=== PATIENT | female | born 1930 | race Caucasian/White ===

== ENCOUNTER 2017-07-07 18:43 | Observation (INO) | payer MEDICARE ==
[2017-07-07] MEDS ORDERED: HYDROcodone/Acetaminophen 5/325 mg Tablet ONE (19:06)
--- NOTE | 2017-07-07 19:57 | CT ---
CT OF THE BRAIN WITHOUT CONTRAST 07/07/17 INDICATION: Fall. COMPARISON: Prior exam dated 04/05/16. FINDINGS: Generalized cerebral and cerebellar atrophy is stable. Moderate chronic small vessel white matter isc hemic change is stable. No acute infarct, hemorrhage, or hydrocephalus is present. Skull and extracra nial soft tissues appear within normal limits. IMPRESSION: No acute intracranial abnormalities. POS: [facility]
--- NOTE | 2017-07-07 19:59 | CT ---
CT OF THE CERVICAL SPINE WITHOUT CONTRAST 07/07/17 INDICATION: Fall with neck pain. FINDINGS: The craniocervical junction appears within normal limits. There is diffuse osteopenia. There is mild multilevel spondylosis of the cervical spine. No definite acute fracture or subluxation is evident. T he lung apices are clear. IMPRESSION: No acute osseous abnormalities. POS: [facility]
[2017-07-07 20:00] LABS: #Eosinphils 0.1 thou/uL (0.0-0.7); #Lymphocytes 0.8 thou/uL (1.20-3.40); #Monocytes 0.4 thou/uL (0.11-0.59); #Neutrophils 13.3 thou/uL (1.40-6.50); %Basophils 0.1 % (0.0-1.0); %Eosinophils 0.5 % (0.0-10.0); %Lymphocytes 5.2 % (21.0-51.0); %Neutrophils 91.2 % (42.0-75.0); Hemoglobin 10.2 g/dL (12.0-16.0); Mean Corpuscular HGB CONC 31.4 g/dL (32.0-36.0); Mean Corpuscular Hemoglobin 31.7 pg (27.0-31.0); Mean Platelet Volume 7.3 fL (7.4-10.4); Platelet Count 368 thou/uL (130-400); RBC Distribution Width 12.6 % (11.5-14.5); Red Blood Cell (RBC) Count 3.21 mill/uL (4.20-5.40); White Blood Cell (WBC) Count 14.6 thou/uL (4.8-10.8)
--- NOTE | 2017-07-07 20:08 | RAD ---
TWO VIEWS OF THE RIGHT ELBOW: 07/07/17 INDICATION: Fall with elbow pain. FINDINGS: No definite acute fracture or subluxation is evident. The lateral projection is suboptimally position ed. There is diffuse osteopenia. There are vascular calcifications within the anterior soft tissues o f the right elbow. No definite joint capsular distention is evident. IMPRESSION: No definite acute osseous abnormality. Limitations to the exam as above. POS: [facility]
--- NOTE | 2017-07-07 20:10 | RAD ---
FOUR VIEWS OF THE RIGHT KNEE: 07/07/17 INDICATION: Fall with right knee pain. FINDINGS: There is severe osteopenia involving the right knee. There is mild degenerative arthrosis of the righ t knee. There are prominent vascular calcifications involving the soft tissues. No definite acute fr acture or subluxation is evident. IMPRESSION: 1. Diffuse osteopenia. 2. Mild osteoarthrosis of the right knee. 3. No definite acute osseous abnormality demonstrated. POS: [facility]
--- NOTE | 2017-07-07 20:12 | RAD ---
TWO VIEWS OF THE RIGHT HIP 07/07/17 INDICATION: Fall with right hip pain. COMPARISON: Prior CT of the abdomen and pelvis dated 03/27/16. FINDINGS: The advanced right hip osteoarthrosis is unchanged. Prominent vascular calcifications are seen effect ing soft tissues of the right hip joint. There is diffuse osteopenia. IMPRESSION: No definite acute osseous abnormality. POS: [facility]
--- NOTE | 2017-07-07 20:13 | RAD ---
TWO VIEWS OF THE RIGHT SHOULDER: 07/07/17 INDICATION: Fall with right shoulder pain. FINDINGS: There is a comminuted, moderately displaced right proximal humerus fracture. The distal fracture frag ment is displaced medially and anteriorly one full shaft width. Extensive comminution seen within the region of the greater tuberosity. Visualized right lung is clear. IMPRESSION: Comminuted moderately displaced right proximal humerus fracture. POS: [facility]
--- NOTE | 2017-07-07 20:14 | RAD ---
AP VIEW OF THE CHEST 07/07/17 INDICATION: Fall with right shoulder pain. FINDINGS: There is stable cardiomegaly. Post CABG changes stable. There is stable elevation of the right hemidi aphragm. No focal consolidation, pleural effusion is evident. There is comminuted, moderately displac ed right proximal humerus fracture. IMPRESSION: 1. No acute cardiopulmonary abnormality. 2. Comminuted right proximal humerus fracture. POS: [facility]
[2017-07-07 20:21] LABS: ALT (SGPT) 16 U/L (8-55); AST (SGOT) 17 U/L (5-34); Albumin 3.9 g/dL (3.4-4.8); Alkaline Phosphatase 123 U/L (40-150); Anion Gap 17 mmol/L (10-20); BUN (Urea Nitrogen) 59 mg/dL (9.8-20.1); Bilirubin, Total 0.3 mg/dL (0.2-1.2); CK (CPK) 121 U/L (29-168); Calc. Creatinine Clearance 0 mL/min (70-130); Calcium 9.4 mg/dL (7.8-10.44); Carbon Dioxide 21 mmol/L (23-31); Chloride 103 mmol/L (98-107); Estimated GFR-MDRD 20; Globulin 3.3 g/dL (2.4-3.5); Glucose 269 mg/dL (83-110); Potassium 5.1 mmol/L (3.5-5.1); Protein, Total 7.2 g/dL (6.0-8.3); Sodium 136 mmol/L (136-145)
[2017-07-07 20:25] LABS: Troponin I 0.041 ng/mL (< 0.028)
[2017-07-07 20:35] LABS: Bilirubin Negative (Negative); Blood, Urine Negative (Negative); Clarity CLEAR (Clear); Glucose, Urine (Dipstick) Negative (Negative); Leukocyte Negative (Negative); Nitrite Negative (Negative); Protein, Urine (Dipstick) Negative (Neg-Trace); Specific Gravity, Urine 1.015 (1.002-1.036); Urobilinogen 0.2 mg/dL (0.2-1.0); pH, Urine 5.5 (5.0-9.0)
[2017-07-07] MEDS ORDERED: traMADol HCl 50 MG TAB PO PRN (22:34)
[2017-07-07] MEDS ORDERED: Ondansetron HCl/PF 4 MG/2 ML Vial IVP PRN (22:35)
[2017-07-07] MEDS ORDERED: hydrALAZINE 20 MG/ML VIAL SLOW IVP PRN (22:35)
[2017-07-07] MEDS ORDERED: Ondansetron ODT 4 MG TAB PO PRN (22:35)
[2017-07-07] MEDS ORDERED: HumaLOG 300 UNITS/3 ML VIAL SC PRN (22:35)
[2017-07-07] MEDS ORDERED: Dextrose 50% Abboject 50 ML SYRINGE SLOW IVP PRN (22:35)
[2017-07-07] MEDS ORDERED: Dextrose 5% in Water 1,000 ML IV PRN (22:35)
[2017-07-07] MEDS ORDERED: Sodium Chloride 0.9% 1,000 ML IV SCH (22:45)
[2017-07-07] MEDS ORDERED: Ibuprofen 200 MG TAB PO SCH (23:00)
[2017-07-07] MEDS ORDERED: Ibuprofen 600 MG TAB PO SCH (23:00)
[2017-07-08] MEDS ORDERED: traMADol HCl 50 MG TAB ONE (00:38)
--- NOTE | 2017-07-08 00:59 | HP ---
DATE OF ADMISSION: 07/07/2017 ATTENDING PHYSICIAN: Dr. Saucedo. TRAUMA ACTIVATION: Not applicable. HISTORY OF PRESENT ILLNESS: This is an 87-year-old female who presented from her assisted living fac ility status post fall. The patient has a history of dementia. The majority of the history was obta ined from family at bedside. Per family, the patient was using her walker became unsteady and fell b ackwards. She had a chief complaint of right arm pain. Unclear, if there was any loss of consciousn ess or head trauma. She was evaluated and found to have an isolated humerus fracture. Orthopedic [facility] r[facility] was notified as well as [facility] rehabilitation. Trauma Services was asked to admit for ob servation and pain control. Upon my evaluation, the patient has a chief complaint of right arm pain. ALLERGIES: SULFA MEDICATIONS, and PLASTIC TAPE. HOME MEDICATIONS: Include Protonix 40 mg p.o. b.i.d., Colace 100 mg p.o. daily, Klor-Con 20 mEq p.o. daily, sertraline 100 mg p.o. daily, hydralazine 50 mg t.i.d., amlodipine 5 mg b.i.d., doxycycline 1 00 mg b.i.d., Lasix 40 mg daily, except for 80 mg Monday and , glipizide 5 mg p.o. daily, li sinopril 10 mg p.o. daily, metoprolol 25 mg b.i.d., Tylenol 500 mg b.i.d. PAST MEDICAL HISTORY: Significant for dementia, hypertension, diabetes, hyperlipidemia, CHF, chronic anemia, and depression. PAST SURGICAL HISTORY: CABG, left hip surgery, cholecystectomy, hysterectomy, and finger I and D. SOCIAL HISTORY: The patient is a resident at an assisted living facility, ambulates using her walker . Family denies alcohol, tobacco or illicit drug use. Per family she has an out of hospital DNR. REVIEW OF SYSTEMS: The patient was recently diagnosed with bronchitis, which was treated with nebuli zers p.r.n. and antibiotics last week. Otherwise, 10-point review of systems was negative except as indicated in the HPI. PHYSICAL EXAMINATION: VITAL SIGNS: On evaluation, blood pressure 165/77, pulse 96, respiration 20, O2 sat 99% on room air, temperature 97.7. GENERAL: Well-developed elderly appearing female in no acute distress. HEAD: Normocephalic, atraumatic. EYES: Pupils are PERRL. Extraocular movements are intact. NECK: Supple. Trachea is midline. CHEST: Surgical scar noted. Normal work of breathing, symmetric rise. LUNGS: Clear to auscultation bilaterally. Symmetric rise. Coarse rhonchi that is cleared with coug gifty. CARDIOVASCULAR: Regular rate and rhythm, no obvious murmurs, rubs or gallops. GASTROINTESTINAL: Abdomen is soft, nontender, nondistended. Bowel sounds are positive. BACK: Reported as being within normal limits. MUSCULOSKELETAL: Right upper extremity in sling. She is neurovascularly intact distal to the side o f her injury with good strength. Left upper extremity within normal limits. Bilateral lower extremi ties within normal limits. NEUROLOGIC: GCS is 15. No focal deficit is noted. LABORATORY FINDINGS: WBC 14.6, hemoglobin 10.2, hematocrit 32.4, platelet count 368. Sodium 136, po tassium 5.1, chloride 103, carbon dioxide 21, BUN 59, creatinine 2.30, glucose 269. AST and ALT with in normal limits. Troponin 0.041. Urinalysis was unremarkable. RADIOGRAPHIC RADIOLOGIC FINDINGS: CT of the brain was negative for acute intracranial abnormality. CT of the C-spine was negative for acute fracture or dislocation. Chest x-ray showed stable elevatio n of the right hemidiaphragm without any acute abnormality. There was evidence of right proximal hum erus fracture per radiology read. Hip x-ray was negative for acute fracture or dislocation. Knee x- ray was negative for acute bony abnormality. X-ray of the right shoulder demonstrated right proximal humerus fracture. X-ray of the elbow was negative for any bony abnormality. ASSESSMENT: 1. Status post mechanical fall. 2. Right proximal humerus fracture. 3. Acute traumatic pain. 4. History of dementia. 5. Acute on chronic kidney disease. 6. Diabetes with hyperglycemia. 7. Hypertension. 8. History of congestive heart failure. 9. History of chronic anemia, stable. 10. Recent bronchitis treated status post antibiotics. 11. History of depression. 12. Elevated troponin, stable when compared to previous. PLAN: Admit to trauma services for pain control and observation. Per discussion with ER physician, Dr. Good from Orthopedic Surgery has been notified and plans for nonoperative treatment. PT and O T. Rehab consult. Oral pain management. Consistent carbohydrate diet with sliding scale insulin. Once Home medications have been reconciled. We will resume. A.m. labs. DVT and gastritis prophylax is as appropriate. Plans for admission were discussed with the patient and family who vocalized unde rstanding. The patient is a DNR. All questions were answered at the time of this dictation. Trauma attending has been notified of admission.
[2017-07-08] MEDS: Acetaminophen 500 MG TAB PO SCH ×3 (01:46→14:27)
[2017-07-08] MEDS: traMADol HCl 50 MG TAB PO SCH ×3 (01:47→14:27)
[2017-07-08 02:21] VITALS: BMI 28.4
[2017-07-08 05:32] LABS: #Lymphocytes 0.7 thou/uL (1.20-3.40); #Monocytes 0.4 thou/uL (0.11-0.59); #Neutrophils 9.7 thou/uL (1.40-6.50); %Basophils 0.2 % (0.0-1.0); %Eosinophils 0.4 % (0.0-10.0); %Lymphocytes 6.8 % (21.0-51.0); %Monocytes 3.9 % (0.0-10.0); %Neutrophils 88.7 % (42.0-75.0); Hemoglobin 8.7 g/dL (12.0-16.0); Mean Corpuscular HGB CONC 32.7 g/dL (32.0-36.0); Mean Corpuscular Hemoglobin 32.8 pg (27.0-31.0); Mean Platelet Volume 7.3 fL (7.4-10.4); Platelet Count 324 thou/uL (130-400); RBC Distribution Width 12.5 % (11.5-14.5); Red Blood Cell (RBC) Count 2.64 mill/uL (4.20-5.40); White Blood Cell (WBC) Count 10.9 thou/uL (4.8-10.8)
[2017-07-08 05:58] LABS: Anion Gap 10 mmol/L (10-20); BUN (Urea Nitrogen) 58 mg/dL (9.8-20.1); Calc. Creatinine Clearance 24 mL/min (70-130); Calcium 8.9 mg/dL (7.8-10.44); Carbon Dioxide 27 mmol/L (23-31); Chloride 105 mmol/L (98-107); Estimated GFR-MDRD 23; Glucose 207 mg/dL (83-110); Phosphorus 4.2 mg/dL (2.3-4.7); Potassium 4.5 mmol/L (3.5-5.1); Sodium 137 mmol/L (136-145)
[2017-07-08] MEDS ORDERED: Ibuprofen 200 MG TAB PO SCH (06:00)
[2017-07-08] MEDS ORDERED: Ibuprofen 600 MG TAB PO SCH (06:00)
[2017-07-08 06:01] LABS: CKMB 4.3 ng/mL (0-6.6); Troponin I 0.053 ng/mL (< 0.028)
[2017-07-08] MEDS ORDERED: hydrALAZINE 25 MG TAB PO SCH (09:00)
[2017-07-08] MEDS ORDERED: Famotidine 20 MG TAB PO SCH (09:00)
[2017-07-08] MEDS ORDERED: Lisinopril 10 MG TAB PO SCH (09:00)
[2017-07-08] MEDS ORDERED: Metoprolol Tartrate 25 MG TAB PO SCH (09:00)
[2017-07-08] MEDS ORDERED: FLU VACC TS2017-18 (>65YR) 0.5 ML SYRINGE IM ONE (09:00)
[2017-07-08] MEDS ORDERED: Amlodipine 5 MG TAB PO SCH (09:00)
[2017-07-08] MEDS ORDERED: Heparin 5,000 UNITS/ML VIAL SC SCH (09:00)
[2017-07-08] MEDS ORDERED: Potassium Chloride 20 MEQ TAB PO SCH (09:00)
[2017-07-08] MEDS ORDERED: Senokot S 8.6-50 MG TAB PO SCH (09:00)
--- NOTE | 2017-07-08 09:36 | PRG ---
DATE OF SERVICE: 07/08/2017 Please see H&P from Dominique Valentine Trauma PA. I agree with her history and physical. Patient is at high risk for any operative procedure secondary to multiple comorbidities. Discussed with Dr. Fco altamirano. Plan is nonoperative treatment with brace. Needs to go to rehab or jail. No plans fo r surgery.
--- NOTE | 2017-07-08 11:53 | CON ---
DATE OF CONSULTATION: 07/08/2017 HISTORY OF PRESENT ILLNESS: Ms. Luis is an 87-year-old female who lives at an assisted living facility. She has significant dementia. The patient is unable to provide any significant history. It was provided by the family. The patient does ambulate with a walker. Yesterday on 07/07/2017 she fell backwards and injured her right shoulder. The patient was brought to the emergency room. X-ra ys reveal a completely displaced fracture at the surgical neck and also fractures of the head of the right proximal humerus. The head is completely off of the humeral shaft and is not within the face i n the glenoid. PAST MEDICAL HISTORY: Severe dementia, hypertension, diabetes, hyperlipidemia, CHF, chronic anemia, and depression. PAST SURGICAL HISTORY: CABG, left hip surgery, cholecystectomy, hysterectomy, and a finger I&D. PHYSICAL EXAMINATION: The right shoulder has mild swelling. There are no open wounds, no erythema. There are some early bruising down into the arm. The patient is able to flex and extend all of her digits. X-rays shows a severely displaced fracture of the neck of the proximal humerus with fracture in the h umeral head and displacement of the head from the glenoid. IMPRESSION: 1. Severe fracture of the right proximal humerus. 2. Severe dementia. 3. Chronic kidney disease. 4. Diabetes mellitus. 5. Hypertension. 6. History of congestive heart failure. 7. Coronary artery disease. 8. Chronic anemia. 9. Recent bronchitis. 10. History of depression. PLAN: The patient is not a good candidate for surgery. Since it is her proximal right humerus I wou ld not recommend surgery. If she did have surgery the only thing that would really be helpful would be replacement of the humeral head which is a large surgery for this patient who has significant medi km problems. I talked with her daughter who states that she talked with the rest of the family and they are in full agreement with the nonsurgical approach. We will place the patient in a shoulder im mobilizer and let the shoulder heal where it is at. I explained to the daughter that she will be arlet ble to really use the right shoulder. She will not be able to do any type of functioning above shoul rubi level, but she will be able to use her elbow, forearm, wrist and hand which for her should be luigi y functional.
[2017-07-08 12:10] VITALS: BP 152/80; TEMP 97.8
--- NOTE | 2017-07-08 14:25 | DIS ---
DATE OF ADMISSION: 07/07/2017 DATE OF DISCHARGE: 07/08/2017 ADMITTING PHYSICIAN: Dr. Saucedo. DISCHARGING PHYSICIAN: Dr. Saucedo. CONSULTING PHYSICIAN: Dr. Good. ADMISSION DIAGNOSIS: Right proximal humerus fracture. DISCHARGE DIAGNOSIS: Right proximal humerus fracture. PROCEDURES PERFORMED: None. HOSPITAL COURSE: The patient is an 87-year-old female who presented from her assisted living facilit y status post fall. She was brought to the [place] ED where she was evaluated and found to have r ight proximal humerus fracture. Orthopedic Surgery was consulted and this was determined to be nonop erative. Trauma Services was asked to admit for observation and pain control. The patient was admit chapo to the surgical floor where she remained stable. [facility] was consulted. The patient was approved and she discharged to rehab on 07/08/2017 in stable condition. DISCHARGE MEDICATIONS: The patient was discharged with Tylenol and tramadol for pain. Home medicati ons were restarted with the exception of antihyperglycemics and her home Lasix. Her home Lasix was h eld due to elevated creatinine above her already elevated baseline. ACTIVITY INSTRUCTIONS: Activity as tolerated. NOURISHMENT INSTRUCTIONS: Diabetic diet. EQUIPMENT AND SUPPLIES: Sling. FOLLOWUP INSTRUCTIONS: The patient is to follow up with her primary care doctor, Dr. Zeus Taylor in 7 days. This patient was discussed with Dr. Saucedo who agrees with this discharge plan.
--- NOTE | 2017-07-16 00:26 | EKG ---
Test Reason : Blood Pressure : / mmHG Vent. Rate : 097 BPM Atrial Rate : 097 BPM P-R Int : 186 ms QRS Dur : 132 ms QT Int : 414 ms P-R-T Axes : 031 123 -06 degrees QTc Int : 525 ms Normal sinus rhythm Right bundle branch block Abnormal ECG Confirmed by RILEY DIAMOND ([id number]), clinical editor RADHA ARMENDARIZ ([id number] on 07/16/2017 12:25:07 AM Referred By: Confirmed By:RILEY DIAMOND
== END 2017-07-08 15:25 ==
LOC: ERS 18:43 → SURG A 22:35
PROVIDERS: ADMIT Surgery; ATTEND Surgery
DX: S42.201A Unspecified fracture of upper end of right humerus, initial encounter for closed fracture (principal); F03.90 Unspecified dementia, unspecified severity, without behavioral disturbance, psychotic disturbance, mood disturbance, and anxiety; E78.5 Hyperlipidemia, unspecified; F32.9 Major depressive disorder, single episode, unspecified; G89.11 Acute pain due to trauma; I13.0 Hypertensive heart and chronic kidney disease with heart failure and stage 1 through stage 4 chronic kidney disease, or unspecified chronic kidney disease; E11.22 Type 2 diabetes mellitus with diabetic chronic kidney disease; N18.9 Chronic kidney disease, unspecified; I50.9 Heart failure, unspecified; N17.9 Acute kidney failure, unspecified; E11.65 Type 2 diabetes mellitus with hyperglycemia; D63.1 Anemia in chronic kidney disease; D53.9 Nutritional anemia, unspecified; Z91.048 Other nonmedicinal substance allergy status; Z88.2 Allergy status to sulfonamides; Z79.84 Long term (current) use of oral hypoglycemic drugs; Z79.899 Other long term (current) drug therapy; Z98.890 Other specified postprocedural states; Z66 Do not resuscitate; W18.30XA Fall on same level, unspecified, initial encounter
CPT/HCPCS: 51701; 70450; 71045; 72125; 73030; 73070; 73502; 73564; 80048; 80053; 81003; 82550; 82553 ×2; 82962; 83735; 84100; 84484 ×2; 85025 ×2; 93005; 94640; 96360; 96361; 97139 ×3; 97530; 97760; 99285; G0378; G8978; G8979; 36415; 36416; A4353; J1644; J7620